=== PATIENT | male | born 1935 | race Caucasian/White ===

== ENCOUNTER 2017-01-07 08:45 | Emergency (ER) | payer MEDICARE, OTHER ==
[~2017-01-07] VITALS: Ht 175.3 cm; Wt 77.0 kg
[2017-01-07 08:47] VITALS: BP 135/86; PULSE 86; RESP 15; TEMP 98.2; O2SAT 98
[2017-01-07] MEDS ORDERED: METF500T PO (08:56)
[2017-01-07] MEDS ORDERED: SITA50 PO (08:56)
[2017-01-07] MEDS ORDERED: PRAV10TA PO (08:56)
--- NOTE | 2017-01-07 09:23 | PD ---
HPI Chief Complaint: ENT Complaint Time Seen by Provider: 09:13 Travel History International Travel<30 days: No Contact w/Intl Traveler<30days: No Traveled to known affect area: No History of Present Illness HPI Patient is an 81-year-old male presents emergency Department decreased hearing out of his right ear for the past 4 days. Patient states that it started just before he drove down from [place]. Denies any cough congestion's fever sore throat runny nose. Does not wear hearing aids. States his not have him before. PFSH Past Medical History High Cholesterol: Yes Diabetes: Yes Patient Takes Glucophage: Yes Diminished Hearing: Yes Hypertension: Yes Influenza Vaccination: Yes Past Surgical History Abdominal Surgery: Yes (hernia repair) Social History Alcohol Use: Yes Tobacco Use: No Substance Use: No Allergies-Medications (Allergen,Severity, Reaction): Coded Allergies: Sulfa (Verified Allergy, Severe, 01/07/17) syncope Amoxicillin (Verified Allergy, Intermediate, 01/07/17) hives Reported Meds & Prescriptions Reported Meds & Active Scripts Active Debrox Otic Drops (Carbamide Peroxide Otic Drops) 6.5% Soln 5-10 Drop EACH EAR BID PRN up to 4 days. Reported Pravastatin 10 Mg Tab 10 Mg PO DAILY Januvia (Sitagliptin Phosphate) 50 Mg Tab 50 Mg PO DAILY Metformin (Metformin HCl) 500 Mg Tab 500 Mg PO BIDPC With meals Review of Systems Except as stated in HPI: all other systems reviewed are Neg Physical Exam Narrative GENERAL: Well-nourished, well-developed patient. SKIN: Focused skin assessment warm/dry. HEAD: Normocephalic. EYES: No scleral icterus. No injection or drainage. ENT: Left ear canal does have some earwax with normal TM just passed earwax. Approximately 50% ear canals block. Right TM not visible secondary to cerumen impaction. Fairly soft earplug. Irrigated and scooped free with curette. This revealed a normal TM. Oropharynx clear and moist. NECK: Supple, trachea midline. No JVD or lymphadenopathy. CARDIOVASCULAR: Regular rate and rhythm without murmurs, gallops, or rubs. RESPIRATORY: Breath sounds equal bilaterally. No accessory muscle use. GASTROINTESTINAL: Abdomen soft, non-tender, nondistended. MUSCULOSKELETAL: No cyanosis, or edema. BACK: Nontender without obvious deformity. No CVA tenderness. Data Data Last Documented VS Vital Signs Date Time Temp Pulse Resp B/P Pulse Ox O2 Delivery O2 Flow Rate FiO2 01/07/17 08:47 98.2 86 15 135/86 98 [facility] Medical Decision Making Medical Screen Exam Complete: Yes Emergency Medical Condition: Yes Differential Diagnosis Otitis media, otitis externa, sensorineural hearing loss, cerumen impaction. Narrative Course Patient was roomed in emergency department his earwax was softened with normal saline into the ear canal and then curetted free. Patient had a sudden return of his hearing. He states he felt much better and wished to go home. Discussed ear hygiene follow-up with primary care physician and return to ED criteria. Diagnosis Primary Impression: Cerumen impaction Med/Other Pt SpecificInfo: Prescription(s) given Scripts Carbamide Peroxide Otic Drops (Debrox Otic Drops)6.5% Soln5-10 Drop EACH EAR BID PRN (Ear Wax Removal) #1 BOTTLE Ref 0 up to 4 days. Prov:Janak Vinson MD 01/07/17 Disposition: 01 DISCHARGE HOME Condition: Stable Janak Vinson MD Jan 07, 2017 09:23
[2017-01-07] MEDS ORDERED: CARB6.5S5 EACH EAR (09:43)
== END 2017-01-07 09:59 | disposition home or self-care (01) ==
LOC: NEPD 08:45
DX: H61.21 Impacted cerumen, right ear (principal)
CPT/HCPCS: 69210